=== PATIENT | female | born 1965 | race Caucasian/White ===

== ENCOUNTER 2023-07-07 09:23 | Observation (INO) | payer OTHER ==
[2023-07-07 09:30] VITALS: BMI 27.8
[2023-07-07] MEDS ORDERED: ASPIRIN 325 MG TABLET PO ONE (10:09)
[2023-07-07] MEDS ORDERED: ASPIRIN 325 MG TABLET ONE (10:33)
[2023-07-07] MEDS ORDERED: ATORVASTATIN CA 80 MG TABLET (FP) PO ONE (10:39)
[2023-07-07 10:42] LABS: HEMATOCRIT 40.8 % (32.4-45.2); HEMOGLOBIN 14.1 GM/dL (10.7-15.3); MCH 33.3 pg (25.7-33.7); MCHC 34.6 g/dl (32.0-36.0); MEAN CELL VOLUME 96.2 fl (80-96); MEAN PLT VOLUME 6.7 fl (7.5-11.1); PLATELET COUNT 240 10^3/uL (134-434); RBC 4.24 M/mm3 (3.60-5.2); RDW 13.3 % (11.6-15.6); WHITE BLOOD COUNT 5.2 K/mm3 (4.0-10.0)
[2023-07-07 10:50] LABS: PROTHROMBIN TIME (PATIENT) 11.6 SEC (9.7-13.0)
[2023-07-07 10:53] LABS: ACTIVATED PTT 33.5 SECONDS (25.2-36.5)
[2023-07-07 11:03] LABS: POTASSIUM 4.1 mmol/L (3.5-5.1)
[2023-07-07 11:07] LABS: CALCIUM 8.6 mg/dL (8.5-10.1)
[2023-07-07 11:08] LABS: ALBUMIN 3.4 g/dl (3.4-5.0); BLOOD UREA NITROGEN 16.3 mg/dL (7-18); CREATININE 0.7 mg/dL (0.55-1.3)
[2023-07-07 11:10] LABS: TOT PROT 6.5 g/dl (6.4-8.2)
[2023-07-07 11:11] LABS: BILIRUBIN,TOTAL 0.7 mg/dL (0.2-1)
[2023-07-07] MEDS ORDERED: ATORVASTATIN CA 40 MG TABLET (FP) ONE (11:17)
[2023-07-07 11:45] LABS: ANISOCYTOSIS 0; HELMET CELLS 0; HOWELL-JOLLY BODIES 0; MACROCYTOSIS 0; OVALOCYTE 0; ROULEAU 0; SICKELED CELLS 0; TARGET CELLS 0; TEAR DROP CELLS 0; TOXIC GRANULATION 0
[2023-07-07 12:12] LABS: PH,URINE 6.5 (5.0-8.0); URINE APPEARANCE CLEAR; URINE BILIRUBIN NEGATIVE (NEGATIVE); URINE COLOR YELLOW; URINE GLUCOSE (UA) NEGATIVE (NEGATIVE); URINE KETONE NEGATIVE (NEGATIVE); URINE LEUK ESTERASE NEGATIVE (NEGATIVE); URINE NITRITE NEGATIVE (NEGATIVE); URINE PROTEIN NEGATIVE (NEGATIVE)
[2023-07-07] MEDS ORDERED: VENLAFAXINE HCL 150 MG E.R. CAPSULE PO SCH (14:00)
[2023-07-07] MEDS ORDERED: PATIENT'S OWN MEDICATION (NON-FORMULARY) (Plecanatide [Trulance] 3 MG Tablet) PO SCH (14:00)
[2023-07-07] MEDS ORDERED: VENLAFAXINE HCL 75 MG TABLET ONE (15:54)
[2023-07-07] MEDS ORDERED: LEVOTHYROXINE NA 100 MCG TABLET (FP) ONE (15:55)
[2023-07-07] MEDS ORDERED: buPROPion HCL 100 MG TABLET ONE (15:55)
[2023-07-07] MEDS: LEVOTHYROXINE NA 200 MCG TABLET PO SCH (16:19)
[2023-07-07] MEDS ORDERED: ACETAMINOPHEN INJECTION 100 ML IVPB ONE (16:28)
[2023-07-08] MEDS: ACETAMINOPHEN 1000 MG/100 ML BAG IVPB PRN ×2 (00:35→10:28)
[2023-07-08] MEDS ORDERED: MELATONIN 1 MG TABLET PO ONE (03:00)
[2023-07-08 06:32] LABS: HEMATOCRIT 40.2 % (32.4-45.2); HEMOGLOBIN 13.3 GM/dL (10.7-15.3); MCH 33.1 pg (25.7-33.7); MCHC 33.2 g/dl (32.0-36.0); MEAN CELL VOLUME 99.8 fl (80-96); PLATELET COUNT 240 10^3/uL (134-434); RBC 4.03 M/mm3 (3.60-5.2); RDW 13.4 % (11.6-15.6); WHITE BLOOD COUNT 5.6 K/mm3 (4.0-10.0)
[2023-07-08] MEDS: LEVOTHYROXINE NA 200 MCG TABLET PO SCH (06:40)
[2023-07-08 08:58] LABS: ANISOCYTOSIS 0; MACROCYTOSIS 1+
[2023-07-08] MEDS ORDERED: VENLAFAXINE HCL 75 MG E.R. CAPSULES PO SCH (09:49)
[2023-07-08] MEDS ORDERED: ENOXAPARIN NA (PORCINE) 40 MG/0.4 ML DISP.SYRIN SQ SCH (10:00)
[2023-07-08] MEDS ORDERED: ASPIRIN 81 MG CHEWABLE TABLETS PO SCH (10:00)
[2023-07-08] MEDS ORDERED: LEVOTHYROXINE NA 25 MCG TABLET (FP) PO SCH (10:00)
[2023-07-08] MEDS ORDERED: PANTOPRAZOLE 20 MG TABLET PO SCH (10:45)
[2023-07-08] MEDS ORDERED: MAGNESIUM SULF 50% (8.12 MEQ/2 ML-1 GM VIAL) IVPB ONE (12:21)
[2023-07-08] MEDS ORDERED: CYCLOBENZAPRINE HCL 10 MG TABLET (FP) PO ONE (12:21)
[2023-07-08 14:15] VITALS: BP 134/72; PULSE 85; RESP 19; TEMP 97.3
[2023-07-08] MEDS ORDERED: IBUPROFEN 800 MG/8 ML IJ IVPB PRN (14:56)
[2023-07-08] MEDS ORDERED: ATORVASTATIN CA 80 MG TABLET (FP) PO SCH (22:00)
== END 2023-07-08 16:43 | disposition home or self-care (01) ==
LOC: JER 09:23 → JERBED 10:35 → J4S 07-08 00:22
PROVIDERS: ADMIT Internal Medicine; ATTEND Internal Medicine
PROC: 3E033GC Introduction of Other Therapeutic Substance into Peripheral Vein, Percutaneous Approach (ICD-10-PCS; principal; 2023-07-07)
PROC: 3E033NZ Introduction of Analgesics, Hypnotics, Sedatives into Peripheral Vein, Percutaneous Approach (ICD-10-PCS; 2023-07-07)
PROC: 3E023GC Introduction of Other Therapeutic Substance into Muscle, Percutaneous Approach (ICD-10-PCS; 2023-07-07)
DX: M62.838 Other muscle spasm (principal); R51.9 Headache, unspecified; F41.8 Other specified anxiety disorders; Z85.850 Personal history of malignant neoplasm of thyroid; Z85.43 Personal history of malignant neoplasm of ovary; K58.9 Irritable bowel syndrome, unspecified; F90.9 Attention-deficit hyperactivity disorder, unspecified type; Z90.89 Acquired absence of other organs; Z29.8 Encounter for other specified prophylactic measures; Z87.891 Personal history of nicotine dependence
CPT/HCPCS: 36415; 70450-TC; 70551-TC; 80053; 80061; 81003; 82550; 82607; 82746; 82962; 83036; 83735; 84439; 84443; 84484; 85025; 85610; 85730; 86850; 86900; 86901; 93005; 93010; 93306-TC; 93880-TC; 96372; 96374; 96375; 97116-GP; 97161-GP; 99285-25; G0378